=== PATIENT | female | born 1945 | race Caucasian/White ===

== ENCOUNTER 2016-03-15 11:55 | Observation (INO) | payer MEDICARE ==
[2016-03-15] VITALS (13 sets, daily range): BP systolic 125–210; BP diastolic 60–102; PULSE 51–74; RESP 16–20; TEMP 96.7–98; O2SAT 96–99
[~2016-03-15] VITALS: Ht 160 cm; Wt 75.0 kg
[~2016-03-15 11:55] MED LIST: LEVO.1; LORTA5 PO; ZOFR4TAB3 PO
[2016-03-15] MEDS: ASPIRIN 325 MG TAB PO ONE ×2 (12:15→12:27)
[2016-03-15] MEDS ORDERED: LEVO.1 PO (12:18)
[2016-03-15] MEDS ORDERED: FEXO15TA PO (12:20)
[2016-03-15] MEDS ORDERED: NITROGLYCERIN 0.4 MG SL 25 TABS/BTL SL ONE (12:30)
--- NOTE | 2016-03-15 12:31 | PD ---
HPI Chief Complaint: Chest Pain Time Seen by Provider: 12:27 Travel History International Travel<30 days: No Contact w/Intl Traveler<30days: No Traveled to known affect area: No History of Present Illness HPI 70-year-old female that presents to the ED for evaluation of chest pressure that she's had since Wednesday. Per patient the chest pressure gets worse with exercise. Per patient she didn't think much of it at that she did state that initially it seemed to radiate to the left arm and neck. Per patient feels more like a pressure. Per patient yesterday she started having more pain without really exerting herself. Per patient she went to an urgent care and told her to come here to get evaluated. She does tell me she had a stress test about 4 or 5 years ago in this facility which was negative. Patient does have a history of high cholesterol and a strong family history of heart disease. She has no history of smoking. She does have a history of hypothyroidism and takes medication for it. She'll for she cannot take any of the stabbing secondary to allergy to it. She does take fish oil for it. She states that yesterday she developed some cough and hoarseness and she related the near worsening chest pain to that but she is not sure. She denies any nausea or vomiting. No abdominal pain. Per patient the pain right has not really painful but more like a pressure and is 3 out of 10. She has not taken anything for this. She has not taken any cold like medications. PFSH Past Medical History Arthritis: Yes Heart Rhythm Problems: No Cardiac Catheterization: No Cardiovascular Problems: No High Cholesterol: Yes Congestive Heart Failure: No Hypertension: Yes Thyroid Disease: Yes (HYPO ) Past Surgical History Section: Yes Coronary Artery Bypass Graft: No Hysterectomy: Yes Other Surgery: Yes (WRIST, SHOULDER ) Family History Family Myocardial Infarction: Yes Social History Alcohol Use: No Tobacco Use: No Substance Use: No Allergies-Medications (Allergen,Severity, Reaction): Coded Allergies: Codeine (Verified Allergy, Severe, Dizziness, 03/15/16) Corticosteroids (Verified Allergy, Severe, Tachycardia, 03/15/16) Erythromycins (Verified Allergy, Severe, Swelling, 03/15/16) HMG-CoA Reductase Inhibitors (Unverified Allergy, Severe, PAIN, 03/15/16) Reported Meds & Prescriptions Reported Meds & Active Scripts Active Reported Louise Allergy (Fexofenadine HCl) 180 Mg Tab 180 Mg PO DAILY Synthroid (Levothyroxine Sodium) 100 Mcg Tab 100 Mcg PO DAILY Review of Systems Except as stated in HPI: all other systems reviewed are Neg Physical Exam Narrative GENERAL: SKIN: Warm and dry. HEAD: Atraumatic. Normocephalic. EYES: Pupils equal and round. No scleral icterus. No injection or drainage. ENT: No nasal bleeding or discharge. Mucous membranes pink and moist. Tongue is midline. No uvula deviation. NECK: Trachea midline. No JVD. CARDIOVASCULAR: Regular rate and rhythm. No murmurs, S3, S4. RESPIRATORY: No accessory muscle use. Clear to auscultation. Breath sounds equal bilaterally. GASTROINTESTINAL: Abdomen soft, non-tender, nondistended. Hepatic and splenic margins not palpable. MUSCULOSKELETAL: Extremities without clubbing, cyanosis, or edema. No obvious deformities. Full range of motion of the upper and lower extremities bilaterally. 2+ pulses bilaterally. NEUROLOGICAL: Awake and alert. No obvious cranial nerve deficits. Motor grossly within normal limits. Five out of 5 muscle strength in the arms and legs. Normal speech. PSYCHIATRIC: Appropriate mood and affect; insight and judgment normal. Data Data Last Documented VS Vital Signs Date Time Temp Pulse Resp B/P Pulse Ox O2 Delivery O2 Flow Rate FiO2 03/15/16 12:17 74 196/91 03/15/16 12:14 18 03/15/16 12:14 99 Room Air 03/15/16 12:00 97.7 Orders Electrocardiogram (03/15/16 ) Basic Metabolic Panel (Bmp) (03/15/16 12:11) Ckmb (Isoenzyme) Profile (03/15/16 12:11) Complete Blood Count With Diff (03/15/16 12:11) Magnesium (Mg) (03/15/16 12:11) Prothrombin Time / Inr (Pt) (03/15/16 12:11) Act Partial Throm Time (Ptt) (03/15/16 12:11) Troponin I (03/15/16 12:11) Chest, Single Ap (03/15/16 12:11) Ecg Monitoring (03/15/16 12:11) Bilateral Bp Monitoring (03/15/16 12:11) Iv Access Insert/Monitor (03/15/16 12:11) Oximetry (03/15/16 12:11) Oxygen Administration (03/15/16 12:11) Aspirin (Aspirin) (03/15/16 12:15) Nitroglycerin Sl (Nitrostat Sl) (03/15/16 12:30) Thyroid Stimulating Hormone (03/15/16 12:27) Labs Laboratory Tests Test 03/15/16 12:30 White Blood Count 8.5 TH/MM3 Red Blood Count 4.94 MIL/MM3 Hemoglobin 14.4 GM/DL Hematocrit 42.2 % Mean Corpuscular Volume 85.5 FL Mean Corpuscular Hemoglobin 29.1 PG Mean Corpuscular Hemoglobin 34.0 % Concent Red Cell Distribution Width 13.7 % Platelet Count 205 TH/MM3 Mean Platelet Volume 9.8 FL Neutrophils (%) (Auto) 59.9 % Lymphocytes (%) (Auto) 28.3 % Monocytes (%) (Auto) 7.8 % Eosinophils (%) (Auto) 3.5 % Basophils (%) (Auto) 0.5 % Neutrophils # (Auto) 5.1 TH/MM3 Lymphocytes # (Auto) 2.4 TH/MM3 Monocytes # (Auto) 0.7 TH/MM3 Eosinophils # (Auto) 0.3 TH/MM3 Basophils # (Auto) 0.0 TH/MM3 CBC Comment DIFF FINAL Differential Comment Prothrombin Time 10.6 SEC Prothromb Time International 1.0 RATIO Ratio Activated Partial 26.5 SEC Thromboplast Time Sodium Level 141 MEQ/L Potassium Level 4.1 MEQ/L Chloride Level 106 MEQ/L Carbon Dioxide Level 27.4 MEQ/L Anion Gap 8 MEQ/L Blood Urea Nitrogen 17 MG/DL Creatinine 0.99 MG/DL Estimat Glomerular Filtration 56 ML/MIN Rate Random Glucose 94 MG/DL Calcium Level 9.1 MG/DL Magnesium Level 2.4 MG/DL Total Creatine Kinase 100 U/L Troponin I LESS THAN 0.02 NG/ML Thyroid Stimulating Hormone 1.050 uIU/ML 3rd Gen [facility] Medical Decision Making Medical Screen Exam Complete: Yes Emergency Medical Condition: Yes Medical Record Reviewed: Yes Interpretation(s) EKG shows sinus rhythm with no sign of acute ischemia and arrhythmia. Read by me and attending. Last Impressions Chest X-Ray 03/15/16 1211 Signed Impressions: Service Date/Time: Tuesday, March 15, 2016 12:40 - CONCLUSION: Normal examination for a patient of this age. Vinay Burt MD CBC & BMP Diagram 03/15/16 12:30 Troponin negative, CK-MB negative. PT and PTT within normal limits. TSH is within normal limits. Differential Diagnosis ACS versus chest pain versus a typical chest pain versus pneumonia versus hypertensive emergency versus hypertensive urgency Narrative Course 70-year-old female that presents to the ED for evaluation of chest pain. Patient was properly examined and was found to have signs and symptoms consistent appears to be chest pain. Definite concern for cardiac chest pain or angina. I recommend EKG and labs and imaging. Patient is agreeable with this. Patient was given nitroglycerin and aspirin. Patient was reassessed and does feel improved. Labs were initially negative. Because of her risk factors and the improvement of symptoms with the medication given to her I do recommend admission for chest pain center workup as she does have risk factors are significant for ACS. Patient is agreeable with this. Patient was admitted to the chest pain center. Procedures EKG Prior to Arrival: No Diagnosis Primary Impression: Chest pain in adult Admitting Information Admitting Physician Requests: Observation Lester Erwin Mar 15, 2016 12:31
[2016-03-15 12:43] LABS: AUTOMATED NEUTROPHIL # 5.1 TH/MM3 (1.8-7.7); BASOPHIL % 0.5 % (0.0-2.0); EOSINOPHIL # 0.3 TH/MM3 (0-0.4); EOSINOPHIL % 3.5 % (0.0-4.0); HEMATOCRIT 42.2 % (35.0-46.0); HEMO FLAGS DIFF FINAL; LYMPH % 28.3 % (9.0-44.0); LYMPHOCYTE # 2.4 TH/MM3 (1.0-4.8); MEAN CELL VOLUME 85.5 FL (80.0-100.0); MEAN CORPUSCULAR HEMOGLOBIN 29.1 PG (27.0-34.0); MONO % 7.8 % (0.0-8.0); NEUT % 59.9 % (16.0-70.0); PLATELET COUNT 205 TH/MM3 (150-450); RED BLOOD COUNT 4.94 MIL/MM3 (4.00-5.30); RED CELL DISTRIBUTION WIDTH 13.7 % (11.6-17.2); WHITE BLOOD COUNT 8.5 TH/MM3 (4.0-11.0)
[2016-03-15 12:53] LABS: APTT (PATIENT) 26.5 SEC (24.3-30.1); PROTHROMBIN TIME - PATIENT 10.6 SEC (9.8-11.6)
[2016-03-15 13:00] LABS: ANION GAP 8 MEQ/L (5-15); BICARBONATE 27.4 MEQ/L (21.0-32.0); BLOOD UREA NITROGEN 17 MG/DL (7-18); CHLORIDE 106 MEQ/L (98-107); GLOMERULAR FILTRATION RATE 56 ML/MIN (>89); MAGNESIUM 2.4 MG/DL (1.5-2.5); POTASSIUM 4.1 MEQ/L (3.5-5.1); SODIUM (NA) 141 MEQ/L (136-145)
[2016-03-15 13:09] LABS: CREATINE KINASE 100 U/L (26-192)
--- NOTE | 2016-03-15 13:11 | RADRPT ---
EXAM DATE/TIME: 03/15/2016 12:40 [facility] COMPARISON: No previous studies available for comparison. INDICATIONS : Chest Pain MEDICAL HISTORY : None. SURGICAL HISTORY : None. ENCOUNTER: Initial ACUITY: 1 day PAIN SCORE: 3/10 LOCATION: Bilateral chest FINDINGS: A single view of the chest demonstrates the lungs to be symmetrically aerated without evidence of mas s, infiltrate or effusion. The cardiomediastinal contours are unremarkable. Osseous structures are intact. CONCLUSION: Normal examination for a patient of this age. Vinay Burt MD on March 15, 2016 at 13:10 Board Certified Radiologist. This report was verified electronically.
[2016-03-15] MEDS ORDERED: SODIUM CHLORIDE 0.9% FLUSH 5 ML FLUSH IVF PRN (13:30)
[2016-03-15] MEDS ORDERED: NITROGLYCERIN 0.4 MG SL 25 TABS/BTL SL PRN (13:30)
[2016-03-15] MEDS ORDERED: ONDANSETRON HCL 4 MG/2 ML VIAL IV PRN (13:30)
[2016-03-15] MEDS ORDERED: ACETAMINOPHEN 500 MG CPLT PO PRN (13:30)
[2016-03-15] MEDS: SODIUM CHLORIDE 0.9% FLUSH 5 ML FLUSH IVF SCH ×2 (13:30→21:00)
[2016-03-15] MEDS ORDERED: LISINOPRIL 10 MG TAB PO ONE (15:15)
--- NOTE | 2016-03-15 15:58 | EKG ---
Date Performed: 03/15/2016 Time Performed: 12:09:39 PTAGE: 70 years EKG: Sinus rhythm NORMAL ECG PREVIOUS TRACING : 01/16/2011 12.10 DOCTOR: Uriel Simmons Interpretating Date/Time 03/15/2016 15:57:35
[2016-03-15 16:16] LABS: CREATINE KINASE 81 U/L (26-192)
[2016-03-15] MEDS: METOPROLOL TARTRATE 25 MG TAB PO SCH ×2 (16:41→21:33)
[2016-03-15] MEDS ORDERED: cloNIDine HCL 0.1 MG TAB PO PRN (17:45)
[2016-03-15 19:21] LABS: CREATINE KINASE 78 U/L (26-192)
--- NOTE | 2016-03-15 21:06 | EKG ---
Date Performed: 03/15/2016 Time Performed: 15:59:28 PTAGE: 70 years EKG: Sinus rhythm NORMAL ECG PREVIOUS TRACING : 03/15/2016 12.09 DOCTOR: Uriel Simmons Interpretating Date/Time 03/15/2016 21:05:13
--- NOTE | 2016-03-15 21:11 | EKG ---
Date Performed: 03/15/2016 Time Performed: 18:45:03 PTAGE: 70 years EKG: SINUS BRADYCARDIA NORMAL ECG EXCEPT FOR RATE PREVIOUS TRACING : 03/15/2016 15.59 DOCTOR: Uriel Simmons Interpretating Date/Time 03/15/2016 21:10:18
[2016-03-16 04:00] VITALS: BP 129/64; PULSE 74; RESP 21; TEMP 98; O2SAT 98
[2016-03-16 04:50] VITALS: O2SAT 95
[2016-03-16] MEDS: METOPROLOL TARTRATE 25 MG TAB PO SCH (05:17)
[2016-03-16 05:54] LABS: HDL CHOLESTEROL 47.3 MG/DL (40.0-60.0)
[2016-03-16 07:43] VITALS: BP 125/59; PULSE 67; RESP 20; TEMP 98; O2SAT 96
[2016-03-16 08:00] VITALS: PULSE 62
--- NOTE | 2016-03-16 08:36 | MH ---
cc: SELINA SIMMONS DATE OF ADMISSION 03/15/2016 DATE OF 1945 CHIEF COMPLAINT Chest pressure. HISTORY OF PRESENT ILLNESS This is a 70-year-old female presents to the emergency room with chest pressure that began on Wednesday. The patient states she normally walks the mall two miles twice weekly and during walking on Wednesday she developed chest pressure in the middle of her chest that radiated to her left arm with some slight shortness of breath. Relieving factor was rest. Since Wednesday she has tried to walk three times and with each time walking and exerting herself she again developed this chest pressure with left arm radiation. She cannot tell me a duration of time, just knows when she rests the chest pain does go away. She has not had any nausea, diaphoresis, dizziness or feeling faint. She does state over the past week she has been more fatigued and over the last few weeks had an increase in indigestion. Since Wednesday also has had right-sided jaw and right ear pain although it does not coincide with the chest pressure. States that the two are separate complaints. Last night she developed a cough and a constant chest pressure related to an upper respiratory illness. Her great-granddaughter that she takes care of who is 5 years old is also sick and she believes she got her illness. The patient went to an Urgent Care and was encouraged to come to the emergency room for further evaluation of chest discomfort. The patient has not been taking any decongestants. PAST MEDICAL HISTORY 1. Hypothyroidism. 2. Hyperlipidemia though she is unable to take any statin and has tried at least four if not five different medications and does not tolerate them. 3. Left shoulder impingement. 4. Chronic tendonitis. 5. She has had a left radial open reduction, internal fixation. PAST SURGICAL HISTORY 1. Hysterectomy. 2. section. FAMILY HISTORY Noncontributory for any early onset cardiovascular disease. Mother had hyperlipidemia, high blood pressure and at age 72 from complications of congestive heart failure. Father had high blood pressure, hyperlipidemia and stroke. She does not have any siblings. SOCIAL HISTORY She is retired, a who is a lifelong nonsmoker. Denies any alcohol or illegal drug use. No hypertension. Has never been told she has hypertension or borderline hypertension. No diabetes. Does have known hyperlipidemia and again she is unable to take cholesterol medication. She is quite active walking two or three times a week, works in her garden and cares for her great-granddaughter who is 5 years old. PAST CARDIAC TESTING She was admitted to the chest pain center 03/19/2010. At that time she had an exercise stress test which was normal. She has never followed with a public safety officer as she has not had any cardiac issues. Her primary care provider is Dr. Torin Albarado. MEDICATIONS Current medications include: 1. Louise 180 mg every other day. 2. Synthroid 100 mcg daily. 3. Fish oil 2 tablets daily. 4. She will take an occasional Motrin. The last time she took a Motrin was approximately 11:00 p.m. yesterday. ALLERGIES CODEINE, CORTICOSTEROIDS, ERYTHROMYCIN AND HMG/COA REDUCTASE INHIBITORS. REVIEW OF SYSTEMS GENERAL: Reports increase in fatigue over the past week. She is normally quite active and is concerned about her fatigue this past week, however, there has been no weakness, fevers, chills, recent travel. She has been around her sick great grandchild whom she takes care of. No change in appetite. HEENT: No headache or visual changes. No nasal congestion or drainage. No dysphagia. CARDIOVASCULAR: Denies any current chest pain, otherwise as stated above. The patient does say relieving factors in the emergency room was the nitroglycerine given to her. No intermittent leg pain, dizziness. RESPIRATORY: No shortness of breath. Has had increased cough with no sputum production since last evening. No wheeze, no hemoptysis. ABDOMEN: No bowel changes, diarrhea, constipation, pain, distension, nausea or vomiting. GENITOURINARY: No dysuria, urgency, frequency. EXTREMITIES: No lower leg edema or pain. MUSCULOSKELETAL: No change in range of motion. No discomfort to her extremities. NEUROLOGICAL: No difficulty with balance, motor or sensory deficits, loss of consciousness, change in memory or syncopal episodes. PSYCHIATRIC: No anxiety or depression. SKIN: No concerning lesions or rashes. PHYSICAL EXAMINATION VITAL SIGNS: Temperature is 98, pulse 65, respiratory 18, blood pressure on admission 210/90, last documented blood pressure 152/102 and 99% on room air. GENERAL: She is alert, well-nourished, well-developed in no acute distress pleasant female. HEENT: Head is normocephalic, atraumatic. Eyes sclera are clear. Conjunctivae is without injection. Pupils are equal and round. Ear, nose, and throat, mucous membranes are pink and moist. NECK: Supple. There are no masses. Trachea is midline. CARDIOVASCULAR: Regular rate and rhythm without murmur, rub or gallop. No JVD. S1-S2. No S3. No S4. LUNGS: Clear lungs throughout bilaterally with no crackles, wheeze or rhonchi. She is nonlabored. Has a symmetric chest rise. Speaking in full sentences. ABDOMEN: Soft. Nondistended. No masses. Positive bowel tones. Slightly tender in the epigastric area upon palpation. BACK: No CVAT. EXTREMITIES: Pulses +2 x4 with trace dependent edema. MUSCULOSKELETAL: Normal tone x4, nontender. No obvious deformities. She is not tender in the chest wall. NEUROLOGICAL: Cranial nerves II-XII grossly intact. Motor strength 5/5. Gait is within normal limits. PSYCHIATRIC: She is alert and oriented times 3. Has a pleasant affect, appropriate to mood, insight and judgment. SKIN: Normal texture, normal turgor, warm and dry with a brisk cap refill with no lesions or rashes. LABORATORY CBC is unremarkable. Chemistry has estimated GFR 56 otherwise unremarkable. Two sets of cardiac enzymes are negative. Coagulations unremarkable. IMAGING Chest x-ray read by the radiologist has a conclusion of a normal exam for the patient of this age and two EKGs show normal sinus rhythm with normal axis and no ST or T segment changes. ASSESSMENT/PLAN 1. Chest pain. Patient has been admitted to the chest pain center. She will be ruled out with three sets of EKGs and cardiac enzymes and will be monitored overnight. This has been discussed with the patient, she is agreeable to this plan of care. The patient was seen and evaluated by Dr. Selina Simmons and discussed with her and her family who is at bedside that if she is ruled out with three sets of EKGs and cardiac enzymes, she will then require further cardiac testing and recommended a chemical stress test. The patient is agreeable to this plan of care. 2. Hypertension. Lisinopril 10 mg one dose given today and ordered daily. Also metoprolol 25 mg q.8h. 3. Hyperlipidemia. Fasting lipid profile ordered for the a.m. 4. Hypothyroidism. TSH level is in with normal limits. Will reorder her levothyroxine. Dictated by: DARREN Landaverde MD ROSSI Laurent/KK /4:20 PM /8:37 AM
[2016-03-16] MEDS ORDERED: LISINOPRIL 10 MG TAB PO SCH (09:00)
[2016-03-16] MEDS ORDERED: ASPIRIN 325 MG TAB PO SCH (09:00)
[2016-03-16] MEDS ORDERED: REGADENOSON INJ 0.4 MG/5 ML SYR ONE (10:06)
[2016-03-16 11:00] VITALS: BP 109/53; PULSE 65; RESP 15; TEMP 97.6; O2SAT 99
--- NOTE | 2016-03-16 11:40 | RADRPT ---
EXAM DATE/TIME: 03/16/2016 09:39 [facility] COMPARISON: CHEST SINGLE AP, March 15, 2016, 12:40. INDICATIONS : Substernal chest pain radiating to left arm and neck. Angina. DOSE: 26.3 mCi Tc99m Myoview at stress. 8.5 mCi Tc99m Myoview at rest. 0.4 mg Lexiscan STRESS SYMPTOMS: Nausea, right arm burning, chest pain and heart racing. EJECTION FRACTION: > 70% MEDICAL HISTORY : Hypertension. Hypothyroidism. SURGICAL HISTORY : section. Hysterectomy. Wrist and shoulder. ENCOUNTER: Initial ACUITY: 1 day PAIN SCALE: 6/10 LOCATION: Substernal chest TECHNIQUE: The patient underwent pharmacologic stress with infusion of prescribed dose. Continuous ECG tracing was monitored during stress. Gated SPECT imaging was performed after stress and conventional SPECT i maging was performed at rest. The examination was performed on a SPECT/CT scanner, both attenuation and non-corrected datasets were reviewed. FINDINGS: DISTRIBUTION: The maximum perfused segment at stress is in the anterior lateral wall. PERFUSION STUDY: The pattern of perfusion at stress is within normal limits. GATED STUDY: There is intact wall motion and thickening without hypokinetic or dyskinetic segments. CONCLUSION: Normal examination. RISK CATEGORY: Low (<1% Annual Mortality Rate) Bimal Magaña MD on March 16, 2016 at 11:39 Board Certified Radiologist. This report was verified electronically.
[2016-03-16] MEDS: SODIUM CHLORIDE 0.9% FLUSH 5 ML FLUSH IVF SCH (11:53)
[2016-03-16] MEDS ORDERED: LISI10TA3 PO (12:01)
--- NOTE | 2016-03-16 12:02 | HHI.DCPOC ---
Discharge Care Plan Diagnosis: (1) Chest pain (2) Hypertension (3) Hypothyroidism Goals to Promote Your Health * To prevent worsening of your condition and complications * To maintain your health at the optimal level Directions to Meet Your Goals Take your medications as prescribed Follow your dietary instruction Follow activity as directed Keep your appointments as scheduled Take your immunizations and boosters as scheduled If your symptoms worsen call your PCP, if no PCP go to Urgent Care Center or Emergency Room Smoking is Dangerous to Your Health. Avoid second hand smoke Call the 24-hour hour crisis hotline for domestic abuse at [place] Mar 16, 2016 12:01
--- NOTE | 2016-03-16 13:41 | TR ---
Date Performed: 03/16/2016 Time Performed: 10:08:25 DOCTOR: Adriel Huitron DRUG LIST: CLINICAL HISTORY: REASON FOR TEST: Angina REASON FOR ENDING: OBSERVATION: CONCLUSION: Lexiscan stress test was performed under standard four minute protocol. Radionuclid e was injected one minute prior to ending the test. No electrocardiographic abormalities were present to suggest ischemia. Nuclear imaging and interpretation are pending. COMMENTS:
== END 2016-03-16 15:20 | disposition home or self-care (01) ==
LOC: NEPC 11:55 → NEDA 13:22 → NEPHCDU 14:53
PROVIDERS: ADMIT Family Medicine; ATTEND Family Medicine
DX: R07.89 Other chest pain (principal); E78.5 Hyperlipidemia, unspecified; E03.9 Hypothyroidism, unspecified; I10 Essential (primary) hypertension; R05 Cough; R53.83 Other fatigue; K30 Functional dyspepsia; Z82.49 Family history of ischemic heart disease and other diseases of the circulatory system
CPT/HCPCS: 71010; 78452; 80048; 80061; 82550; 83735; 84443; 84484; 85025; 85610; 85730; 93005; 93017; 99285; A9502; G0378; J2785